=== PATIENT | female | born 1950 | race Caucasian/White ===

== ENCOUNTER 2016-10-17 11:52 | Outpatient (CLI) | payer MEDICARE, OTHER | END 2016-10-17 11:53 | disposition home or self-care (01) | DX: Z12.31 Encounter for screening mammogram for malignant neoplasm of breast (principal) ==

== ENCOUNTER 2017-05-07 15:44 | Outpatient (CLI) | payer MEDICARE, OTHER ==
[2017-05-07 13:38] LABS: BASOPHILS % (AUTO) 0.6 %; EOSINOPHILS # (AUTO) 0.2 10^3/uL (0.0-0.7); EOSINOPHILS % (AUTO) 4.2 %; HCT - HEMATOCRIT 41.5 % (37.0-47.0); HGB - HEMOGLOBIN 14.1 g/dL (12.0-16.0); LYMPHOCYTES % (AUTO) 17.2 %; MEAN CORPUSCULAR HEMOGLOBIN 30.3 pg (27.0-31.0); MEAN CORPUSCULAR HGB CONC 34.1 g/dL (32.0-36.0); MEAN CORPUSCULAR VOLUME 88.8 fL (81.0-99.0); MEAN PLATELET VOLUME 9.3 fL (7.9-10.8); MONOCYTES # (AUTO) 0.6 10^3/uL (0.0-1.0); MONOCYTES % (AUTO) 10.9 %; NEUTROPHILS # (AUTO) 3.9 10^3/uL (1.5-6.6); NEUTROPHILS % (AUTO) 67.1 %; NUCLEATED RED BLOOD CELLS AUTO 0.1 /100WBC; RED BLOOD COUNT 4.67 10^6/uL (4.20-5.40); RED CELL DISTRIBUTION WIDTH 13.9 % (12.0-15.0); UNCORRECTED WHITE BLOOD COUNT 5.8 x10^3/uL; WHITE BLOOD COUNT 5.8 x10^3/uL (4.8-10.8)
[2017-05-07 14:09] LABS: ALBUMIN/GLOBULIN RATIO 1.3 (1.0-2.2); BILIRUBIN,TOTAL 0.7 mg/dL (0.2-1.0); CALCIUM 8.7 mg/dL (8.5-10.3); CREATININE 0.7 mg/dL (0.4-1.0); POTASSIUM 4.2 mmol/L (3.5-5.0); TOTAL PROTEIN 7.1 g/dL (6.7-8.2)
== END 2017-05-07 15:45 | disposition home or self-care (01) ==
LOC: LAB.WCP 15:44
PROVIDERS: ATTEND Family Medicine
DX: I10 Essential (primary) hypertension (principal)
CPT/HCPCS: 36415; 80053; 85025

== ENCOUNTER 2017-05-23 10:06 | Outpatient (CLI) | payer MEDICARE, OTHER ==
[2017-05-23 13:50] LABS: ALBUMIN/GLOBULIN RATIO 1.4 (1.0-2.2); BILIRUBIN,TOTAL 0.9 mg/dL (0.2-1.0); CALCIUM 8.9 mg/dL (8.5-10.3); CREATININE 0.7 mg/dL (0.4-1.0); TOTAL PROTEIN 7.1 g/dL (6.7-8.2)
== END 2017-05-23 10:07 | disposition home or self-care (01) ==
LOC: LAB.WCP 10:06
PROVIDERS: ATTEND Family Medicine
DX: E78.1 Pure hyperglyceridemia (principal)
CPT/HCPCS: 36415; 80053

== ENCOUNTER 2019-02-19 10:07 | Outpatient (CLI) | payer MEDICARE, OTHER ==
--- NOTE | 2019-02-19 16:06 | XRAY Report ---
Reason: HAND PAIN,LEFT Procedure Date: 02/19/2019 Accession Number: [id number] / [id number] Procedure: XRN - Hand 3 View LT CPT Code: FULL RESULT: EXAM: LEFT HAND RADIOGRAPHY EXAM DATE: 02/19/2019 10:31 AM. CLINICAL HISTORY: HAND PAIN, LEFT. COMPARISON: None. TECHNIQUE: 3 views. FINDINGS: Bones: No fractures or bone lesions. Joints: Mild interphalangeal degenerative changes. Mild degenerative changes at the first carpometacarpal joint. No subluxations. Soft Tissues: No soft tissue swelling. IMPRESSION: 1. No acute fracture or subluxation. 2. Mild degenerative changes. RADIA
== END 2019-02-19 10:08 | disposition home or self-care (01) ==
LOC: DI.N 10:07
PROVIDERS: ATTEND Family Medicine
DX: M19.042 Primary osteoarthritis, left hand (principal); M18.12 Unilateral primary osteoarthritis of first carpometacarpal joint, left hand

== ENCOUNTER 2019-03-05 08:00 | Outpatient (CLI) | payer MEDICARE, OTHER ==
[2019-03-05 12:03] LABS: BASOPHILS # (AUTO) 0.1 10^3/uL (0.0-0.1); BASOPHILS % (AUTO) 0.9 %; EOSINOPHILS # (AUTO) 0.2 10^3/uL (0.0-0.7); HGB - HEMOGLOBIN 14.9 g/dL (12.0-16.0); LYMPHOCYTES % (AUTO) 17.5 %; MEAN CORPUSCULAR HEMOGLOBIN 30.3 pg (27.0-31.0); MEAN CORPUSCULAR HGB CONC 34.3 g/dL (32.0-36.0); MEAN CORPUSCULAR VOLUME 88.4 fL (81.0-99.0); MEAN PLATELET VOLUME 11.3 fL (7.9-10.8); MONOCYTES # (AUTO) 0.5 10^3/uL (0.0-1.0); MONOCYTES % (AUTO) 9.4 %; NEUTROPHILS # (AUTO) 3.9 10^3/uL (1.5-6.6); NEUTROPHILS % (AUTO) 67.9 %; PLT - PLATELET COUNT 217 10^3/uL (130-450); RED BLOOD COUNT 4.91 10^6/uL (4.20-5.40); RED CELL DISTRIBUTION WIDTH 13.6 % (12.0-15.0); WHITE BLOOD COUNT 5.7 x10^3/uL (4.8-10.8)
[2019-03-05 12:24] LABS: ALBUMIN 3.9 g/dL (3.2-5.5); ALBUMIN/GLOBULIN RATIO 1.1 (1.0-2.2); ALKALINE PHOSPHATASE 84 IU/L (42-121); ALT ALANINE AMINOTRANSFERASE 17 IU/L (10-60); AST ASPARTATE AMINOTRANSFERASE 19 IU/L (10-42); BILIRUBIN,TOTAL 0.9 mg/dL (0.2-1.0); BUN - BLOOD UREA NITROGEN 14 mg/dL (6-20); CARBON DIOXIDE - CO2 22 mmol/L (21-32); CHLORIDE 102 mmol/L (101-111); CHOL/HDL RATIO 3.1 (<4.4); CHOLESTEROL 181 mg/dL; CREATININE 0.6 mg/dL (0.4-1.0); GFR - MDRD 99 (>89); GLUCOSE 103 mg/dL (70-100); HDL CHOLESTEROL 58 mg/dL; LDL CHOLESTEROL,CALCULATED 102 mg/dL; LDL/HDL RATIO 1.8 (<4.4); SODIUM 136 mmol/L (135-145); TOTAL PROTEIN 7.4 g/dL (6.7-8.2); VLDL CHOLESTEROL 21 mg/dL
[2019-03-05 12:28] LABS: HB2 TOTAL 16.4 g/dL; HEMOGLOBIN A1C 0.62 g/dL; HEMOGLOBIN A1C % 5.6 % (4.6-6.2)
== END 2019-03-05 23:59 | disposition home or self-care (01) ==
LOC: LAB.WCP 08:00
PROVIDERS: ATTEND Family Medicine
DX: R53.83 Other fatigue (principal); I10 Essential (primary) hypertension; D13.5 Benign neoplasm of extrahepatic bile ducts; F32.9 Major depressive disorder, single episode, unspecified; R07.9 Chest pain, unspecified; E66.9 Obesity, unspecified
CPT/HCPCS: 36415; 80053; 80061; 83036; 83721; 84443; 85025

== ENCOUNTER 2019-05-20 08:00 | Outpatient (CLI) | payer MEDICARE, OTHER ==
[2019-05-20 18:42] LABS: CALCIUM 8.7 mg/dL (8.5-10.3); CREATININE 0.7 mg/dL (0.4-1.0); MAGNESIUM 2.2 mg/dL (1.7-2.8)
== END 2019-05-20 23:59 | disposition home or self-care (01) ==
LOC: LAB.WCP 08:00
PROVIDERS: ATTEND Internal Medicine Cardiovascular Disease
DX: I10 Essential (primary) hypertension (principal)
CPT/HCPCS: 36415; 80048; 83735

== ENCOUNTER 2019-07-01 09:00 | Outpatient (CLI) | payer MEDICARE, OTHER ==
[2019-07-01 18:59] LABS: CALCIUM 8.8 mg/dL (8.5-10.3); CREATININE 0.7 mg/dL (0.4-1.0)
== END 2019-07-01 23:59 | disposition home or self-care (01) ==
LOC: LAB.WCP 09:00
PROVIDERS: ATTEND Nurse Practitioner
DX: I10 Essential (primary) hypertension (principal)
CPT/HCPCS: 36415; 80048

== ENCOUNTER 2019-07-09 14:22 | Outpatient (CLI) | payer MEDICARE, OTHER ==
[2019-07-09 19:16] LABS: CALCIUM 8.6 mg/dL (8.5-10.3); CREATININE 0.8 mg/dL (0.4-1.0)
== END 2019-07-09 23:59 | disposition home or self-care (01) ==
LOC: LAB.WCP 14:22
PROVIDERS: ATTEND Nurse Practitioner
DX: I10 Essential (primary) hypertension (principal); R07.9 Chest pain, unspecified; I48.0 Paroxysmal atrial fibrillation
CPT/HCPCS: 36415; 80048; 84443

== ENCOUNTER 2019-07-12 11:03 | Outpatient (CLI) | payer MEDICARE, OTHER ==
[2019-07-12 18:39] LABS: CALCIUM 9.1 mg/dL (8.5-10.3); CREATININE 0.7 mg/dL (0.4-1.0)
== END 2019-07-12 23:59 | disposition home or self-care (01) ==
LOC: LAB.WCP 11:03
PROVIDERS: ATTEND Nurse Practitioner
DX: I10 Essential (primary) hypertension (principal)
CPT/HCPCS: 36415; 80048

== ENCOUNTER → 2019-08-27 | Outpatient (CLI) | payer MEDICARE, OTHER ==
[2019-08-27 19:20] LABS: CALCIUM 8.8 mg/dL (8.5-10.3)
== END ==
LOC: LAB.WCP 08:00
PROVIDERS: ATTEND Family Medicine
DX: I48.0 Paroxysmal atrial fibrillation (principal); I10 Essential (primary) hypertension; R07.89 Other chest pain
CPT/HCPCS: 36415; 80048

== ENCOUNTER 2020-01-17 09:48 | Outpatient (CLI) | payer MEDICARE, OTHER ==
--- NOTE | 2020-01-17 12:19 | DEXA Report ---
Reason: POSTMENOPAUSAL Procedure Date: 01/17/2020 Accession Number: [id number] / [id number] Procedure: DEX - Dexa Spine and/or Hip CPT Code: Final Report FULL RESULT: PROCEDURE: Dexa Spine and/or Hip INDICATIONS: POSTMENOPAUSAL TECHNIQUE: Dual energy x-ray absorptiometry (DXA) was performed on a [employer] System. Regions measured are the AP Spine, femoral neck, and if needed forearm. COMPARISON: None. FINDINGS: Lumbar Spine: Bone Mineral Density 0.993 g/cm/cm,T score -1.6. Total left Hip: Bone Mineral Density 0.719 g/cm/cm,T score -2.3. Left Femoral Neck: Bone Mineral Density 0.721 g/cm/cm, T score -2.3. (T score greater or equal to -1.0: NORMAL) (T score from -1.1 to -2.4: OSTEOPENIA) (T score less than or equal to -2.5 to: OSTEOPOROSIS) Impression: Finding is consistent with osteopenia with increased risk of fracture. Patients with diagnosis of osteoporosis or osteopenia should have regular bone mineral density assessment. For those eligible for Medicare, routine testing is allowed once every 2 years. Testing frequency can be increased for patients who have rapidly progressing disease or for those who are receiving medical therapy to restore bone mass. Reviewed by: Margarito Aguilar MD on 01/17/2020 12:17 PM PDT Approved by: Margarito Aguilar MD on 01/17/2020 12:17 PM PDT Station ID: [id number]
== END 2020-01-17 09:49 | disposition home or self-care (01) ==
LOC: DI 09:48
PROVIDERS: ATTEND Family Medicine
DX: M85.89 Other specified disorders of bone density and structure, multiple sites (principal)
CPT/HCPCS: 77080

== ENCOUNTER 2020-02-10 12:55 | Emergency (ER) | payer MEDICARE, OTHER ==
[2020-02-10 13:32] LABS: BASOPHILS % (AUTO) 0.5 %; EOSINOPHILS # (AUTO) 0.2 10^3/uL (0.0-0.7); EOSINOPHILS % (AUTO) 2.8 %; HGB - HEMOGLOBIN 13.8 g/dL (12.0-16.0); LYMPHOCYTES # (AUTO) 1.2 10^3/uL (1.5-3.5); LYMPHOCYTES % (AUTO) 20.2 %; MEAN CORPUSCULAR HEMOGLOBIN 30.9 pg (27.0-31.0); MEAN CORPUSCULAR HGB CONC 35.4 g/dL (32.0-36.0); MEAN CORPUSCULAR VOLUME 87.2 fL (81.0-99.0); MEAN PLATELET VOLUME 9.9 fL (7.9-10.8); MONOCYTES # (AUTO) 0.7 10^3/uL (0.0-1.0); MONOCYTES % (AUTO) 12.3 %; NEUTROPHILS # (AUTO) 3.7 10^3/uL (1.5-6.6); PLT - PLATELET COUNT 234 10^3/uL (130-450); RED BLOOD COUNT 4.47 10^6/uL (4.20-5.40); RED CELL DISTRIBUTION WIDTH 13.3 % (12.0-15.0); WHITE BLOOD COUNT 5.7 x10^3/uL (4.8-10.8)
--- NOTE | 2020-02-10 13:38 | ED Physician Documentation ---
PD HPI CHEST PAIN - Stated complaint Stated Complaint: CHEST PX - Chief complaint Chief Complaint: Cardiac - History obtained from History obtained from: Patient, Family - History of Present Illness Timing - onset: How many days ago (2) Timing - onset during: Rest Timing - duration: Minutes Timing - details: Abrupt onset, Intermittant Pain level max: 5 Pain level now: 0 Quality: Sharp Location: Substernal Radiation: No: Jaw, Neck, Back Improved by: Nothing Associated symptoms: No: Shortness of air, Diaphoresis, Nausea, Vomiting, Feeling faint / dizzy, General Weakness, Palpitations, Cough - Additional information Additional information: 69-year-old female presents to the emergency department for evaluation of chest pain that occurred nearly 48 hours ago. She reports that she had chest pain about 4 years ago when she developed atrial fibrillation. Since that time she has been placed on metoprolol and Xarelto. Her rhythm in the emergency department right now is a sinus rhythm. It is unclear to me at si time when or how she was converted to a sinus rythm. Patient reports that the chest pain has occurred 3 times since Friday. Each time lasting up to 30 minutes. Is described as sharp and substernal. She denies feeling dyspneic, faint or lightheaded, she had no radiation to the jaw or arm or back. she denies palpitations or a racing heart. She denies that she has any chest pain at this time. Primary care provider is Dr. Eduardo Rodriguez in [place]. Her die maker electronic is Dr. Florez through [facility] cardiology. She is scheduled for an appointment at the end of January pmh: htn, atrial fibrillation meds: xarelto 20 mg qd, HCTZ 12. mg qd, metoprolol 50 mg BID, losartan 75 mg QD Review of Systems Constitutional: denies: Fever, Chills Cardiac: reports: Chest pain / pressure. denies: Palpitations, Pedal edema, C cele pain Respiratory: denies: Dyspnea, Cough, Hemoptysis, Wheezing GI: denies: Abdominal Pain, Abdominal Swelling, Nausea, Vomiting : denies: Dysuria, Frequency Skin: denies: Rash, Lesions Musculoskeletal: denies: Neck pain, Back pain Neurologic: denies: Generalized weakness, Focal weakness, Numbness, Difficulty speaking, Near syncope, Syncope, Confused, Altered mental status, Headache, Head injury PD PAST MEDICAL HISTORY - Past Medical History Cardiovascular: Hypertension, Atrial fibrillation Respiratory: None Neuro: None Endocrine/Autoimmune: None GI: None, GERD - Allergies Allergies/Adverse Reactions: Allergies Allergy/AdvReac Type Severity Reaction Status Date / Time mefenamic acid [From Ponstel] Allergy Rash Verified 02/10/20 13:03 amlodipine AdvReac Respiratory Verified 02/10/20 13:03 lisinopril AdvReac Respiratory Verified 02/10/20 13:03 Sulfa (Sulfonamide AdvReac Nausea Verified 02/10/20 13:03 Antibiotics) PD ED PE NORMAL - General General: Alert and oriented X 3, No acute distress, Well developed/nourished - HEENT HEENT: PERRL, EOMI - Neck Neck: Supple, no meningeal sign, No adenopathy - Cardiac Cardiac: RRR, No murmur, No gallop, No rub, Strong equal pulses - Respiratory Respiratory: No respiratory distress, Clear bilaterally - Abdomen Abdomen: Normal bowel sounds, Soft, Non tender, Non distended - Derm Derm: Normal color, Warm and dry, No rash - Extremities Extremities: No deformity - Neuro Neuro: Alert and oriented X 3, counsellors 2-12 intact, No motor deficit, No sensory deficit, Normal speech Eye Opening: Spontaneous Motor: Obeys Commands Verbal: Oriented GCS Score: 15 Results - Vitals Vitals: Vital Signs - 24 hr 02/10/20 02/10/20 12:57 13:44 Temperature 36.8 C Heart Rate 61 89 Respiratory 18 Rate Blood Pressure 179/83 H 142/58 H O2 Saturation 96 Oxygen O2 Source Room air - EKG (time done) 1301 Rate: Rate (enter#) (60) Rhythm: Abnormal P waves (P wave inversion II, III, AVF, V3, V4; ectopic atrial rythm) [place]: Other Intervals: Normal MD QRS: Normal Ischemia: Normal ST segments Compare to prior EKG: Old EKG unavailable Computer interpretation: Agree with computer - Labs Labs: Laboratory Tests 02/10/20 02/10/20 02/10/20 13:20 13:20 13:20 WBC 5.7 RBC 4.47 Hgb 13.8 Hct 39.0 MCV 87.2 MCH 30.9 MCHC 35.4 RDW 13.3 Plt Count 234 MPV 9.9 Neut # (Auto) 3.7 Lymph # (Auto) 1.2 L [place] # (Auto) 0.7 Eos # (Auto) 0.2 Baso # (Auto) 0.0 Absolute Nucleated RBC 0.00 Nucleated RBC % 0.0 Sodium 127 L Potassium 4.0 Chloride 93 L Carbon Dioxide 24 Anion Gap 10.0 BUN 21 H Creatinine 0.7 Estimated GFR (MDRD) 83 L Glucose 92 Calcium 8.9 Total Bilirubin 1.0 AST 20 ALT 17 Alkaline Phosphatase 72 Troponin I High Sens 4.3 Total Protein 7.1 Albumin 4.0 Globulin 3.1 Albumin/Globulin Ratio 1.3 Lipase 32 - Rads (name of study) CXR Radiology: Final report received (No acute cardiopulmonary process) PD MEDICAL DECISION MAKING - ED course Complexity details: reviewed results, re-evaluated patient, d/w patient, d/w family ED course: 69-year-old female presents to the emergency department for evaluation of chest pain that she noted nearly 48 hours ago. At the time of evaluation in the emergency department she denies any current chest pain and her vital signs are essentially normal - This very pleasant lady reports a history of atrial fib which seems well controlled on Metroprolol and Xarelto. Her EKG is sinus but many the P waves are inverted raising the question of an ectopic atrial focus. However there is certainly no ST segment elevations and her troponin is negative. She has very close follow-up scheduled with her primary care doctor and her die maker electronic for the end of January. I have advised that she call sooner to discuss this ED visit - Her labs are noted to be most significant finding of hyponatremia. Patient reports that she has been told she has hyponatremia in the past and they have adjusted her dose of hydrochlorothiazide for this. I have advised her to have her sodium levels rechecked within 1 week. I also discussed precautions return for headaches, confusion, chest pain dyspnea or extremity swelling Departure - Departure Disposition: 01 Home, Self Care Clinical Impression: Hyponatremia Chest pain Qualifiers: Chest pain type: unspecified Qualified Code(s): R07.9 - Chest pain, unspecified Condition: Stable Instructions: ED Chest Pain Atypical Unkn Cause Comments: Christiano, I hope you are feeling better soon. Please call your die maker electronic to discuss this ED visit. Your troponin is negative today and your EKG does not look like you are having a heart attack. We do not that yoru sodium is 127 mmol/L. This should be rechecked in one week with your primary care doctor or die maker electronic. They may choose to lower or dis continue the HCTZ even further. If you develop headaches, can not speak normally, feel faint or light headed or your chest pain returns, then please return to the emergency department for further evaluation
[2020-02-10 13:47] LABS: ALBUMIN/GLOBULIN RATIO 1.3 (1.0-2.2); CALCIUM 8.9 mg/dL (8.5-10.3); CREATININE 0.7 mg/dL (0.4-1.0); TOTAL PROTEIN 7.1 g/dL (6.7-8.2)
--- NOTE | 2020-02-10 14:00 | XRAY Report ---
PROCEDURE: Chest 1 View X-Ray INDICATIONS: Chest pain TECHNIQUE: One view of the chest was acquired. COMPARISON: 09/10/2016 FINDINGS: Surgical changes and devices: None. Lungs and pleura: No pleural effusions or pneumothorax. Lungs are clear. Mediastinum: Mediastinal contours appear normal. Heart size is normal. Bones and chest wall: No suspicious bony lesions. Overlying soft tissues appear unremarkable. IMPRESSION: No acute cardiopulmonary pathology. Reviewed by: Margarito Aguilar MD on 02/10/2020 1:58 PM PDT Approved by: Margarito Aguilar MD on 02/10/2020 1:58 PM PDT Station ID: [id number]
[2020-02-10 14:16] VITALS: BP 140/77
== END 2020-02-10 14:26 | disposition home or self-care (01) ==
LOC: ED 12:55
DX: R07.89 Other chest pain (principal); E87.1 Hypo-osmolality and hyponatremia; I48.91 Unspecified atrial fibrillation; Z79.01 Long term (current) use of anticoagulants; I10 Essential (primary) hypertension
CPT/HCPCS: 36415; 71045; 80053; 83690; 84484; 85025; 93005; 99284

== ENCOUNTER 2020-04-04 07:46 | Outpatient (CLI) | payer MEDICARE ==
[2020-04-04 12:41] LABS: BASOPHILS % (AUTO) 0.8 %; EOSINOPHILS # (AUTO) 0.2 10^3/uL (0.0-0.7); EOSINOPHILS % (AUTO) 3.5 %; HGB - HEMOGLOBIN 13.7 g/dL (12.0-16.0); LYMPHOCYTES # (AUTO) 1.1 10^3/uL (1.5-3.5); LYMPHOCYTES % (AUTO) 21.6 %; MEAN CORPUSCULAR HEMOGLOBIN 30.1 pg (27.0-31.0); MEAN CORPUSCULAR HGB CONC 33.7 g/dL (32.0-36.0); MEAN CORPUSCULAR VOLUME 89.5 fL (81.0-99.0); MEAN PLATELET VOLUME 10.8 fL (7.9-10.8); MONOCYTES # (AUTO) 0.6 10^3/uL (0.0-1.0); MONOCYTES % (AUTO) 11.8 %; NEUTROPHILS # (AUTO) 3.2 10^3/uL (1.5-6.6); NEUTROPHILS % (AUTO) 62.1 %; PLT - PLATELET COUNT 211 10^3/uL (130-450); RED BLOOD COUNT 4.55 10^6/uL (4.20-5.40); RED CELL DISTRIBUTION WIDTH 13.4 % (12.0-15.0); WHITE BLOOD COUNT 5.1 x10^3/uL (4.8-10.8)
[2020-04-04 13:48] LABS: ALBUMIN 3.9 g/dL (3.2-5.5); ALBUMIN/GLOBULIN RATIO 1.3 (1.0-2.2); ALKALINE PHOSPHATASE 54 IU/L (42-121); ALT ALANINE AMINOTRANSFERASE 19 IU/L (10-60); AST ASPARTATE AMINOTRANSFERASE 18 IU/L (10-42); BILIRUBIN,TOTAL 0.7 mg/dL (0.2-1.0); BUN - BLOOD UREA NITROGEN 14 mg/dL (6-20); CALCIUM 8.8 mg/dL (8.5-10.3); CARBON DIOXIDE - CO2 27 mmol/L (21-32); CHLORIDE 99 mmol/L (101-111); CHOL/HDL RATIO 2.7 (<4.4); CHOLESTEROL 177 mg/dL; GLUCOSE 97 mg/dL (70-100); HDL CHOLESTEROL 66 mg/dL; LDL CHOLESTEROL,CALCULATED 97 mg/dL; LDL/HDL RATIO 1.5 (<4.4); SODIUM 131 mmol/L (135-145); TOTAL PROTEIN 6.9 g/dL (6.7-8.2); VLDL CHOLESTEROL 14 mg/dL
[2020-04-04 14:28] LABS: CREATININE 0.6 mg/dL (0.4-1.0)
== END 2020-04-04 23:59 | disposition home or self-care (01) ==
LOC: LAB.WCP 07:46
PROVIDERS: ATTEND Family Medicine
DX: I10 Essential (primary) hypertension (principal)
CPT/HCPCS: 36415; 80053; 80061; 83721; 85025

== ENCOUNTER 2020-08-07 13:12 | Outpatient (CLI) | payer MEDICARE ==
--- NOTE | 2020-08-07 21:28 | SLEEP CARE CONSULTATION ---
Information from patient questionnaire entered by Carmen Avila. I have reviewed and concur with the information entered by Carmen Avila. This document represents the service I personally performed and the decisions made by me, José Miguel Mc MD, [facility]. History of Present Illness Service Date and Time: 08/07/2020 1312 Reason for Visit: New patient Chief Complaint: reports: Insomnia, Other (cardiology recommended) Date of Onset: for ever Usual bedtime: 10 pm Time it takes to fall asleep: quickly to hours Snores at night: Yes (sometimes) Observed to quit breathing while asleep: No Sleeps alone due to snoring: No Number of times waking at night: 2-4 Reasons for waking at night: reports: Bathroom, Other (unknown) Toss, Turn, or Twitch while sleeping: No (unknown) Recalls having dreams: Yes Usually gets out of bed at: 4-6 am Feels refreshed in the morning: Yes (sometimes) Morning headache: No Sleepy or fatigued during the day: Yes (sometimes) Ever fallen asleep while driving: No Takes day naps: No (sometimes) Dreams during day naps: No Prior sleep studies: No Additional HPI information: I had the pleasure of seeing Ms. Mendoza today regarding the possibility of her h aving a sleep disorder. As you know, she is a 70 year old lady who has paroxysmal atrial fibrillation and recommended by her pre k lead teacher to have a sleep study. The patient tells me that she normally goes to bed around 10 pm, and it takes her from a few minutes to hours fall asleep. She has been told that she snores occasionally at night. She has never been observed to stop breathing in her sleep. Her spouse can still sleep in the same bed. She can recall waking up on the average of 2 - 4 times during the night. Most of the time she wakes up because of having to use the bathroom. She has never awakened because of her own snoring, choking, or having to gasp for air. There is not a lot of tossing and turning in her sleep. No somniloquy (sleep talking) or somnambulism (sleep walking). Generally she can recall having dreams. In the morning she usually gets up out of the bed around 4 - 6 a.m. feeling refreshed and rested. She usually does not have a morning headache. During the day she complains of feeling occasionally sleepy and fatigued. Her score on [place] Sleepiness Scale is 7 out of 24. She has never fallen asleep while driving nor has had any accident due to sleepiness. She usually does not take naps during the day. Upon falling asleep during the day she denies having vivid dreams. She has never had sleep paralysis. She reports having impaired concentration during the day. - Parasomnia Symptoms Ever been unable to move upon waking from sleep: Yes Ever felt weak in the knees when startled or emotional: No Bothered by creepy, crawly, restless sensations in legs: No Problems with memory or concentration: Yes Subjective Initial [place] Sleepiness Scale score: 8 (in 2019) Past Medical History Past Medical History: reports: Hypertension, Other (A-Fib, IBS) Social History The patient's occupation is a Retired. Patient is and lives in [place]. Have you smoked in the past 12 months: No Alcohol use: Yes Alcohol amount and frequency: occasionally Caffeine use: No Caffeine amount and frequency: decaf tea Allergies and Home Medications Drug allergies reviewed: Yes (Ponstel, sulfa) Home medication list reviewed: Yes (: Xarelto, metoprolol, losartan, hydrochlorothiazide ) Review of Systems Cardiovascular: reports: high blood pressure, chest pain Respiratory: denies: shortness of breath, wheeze, sputum production, chronic cough, other Gastrointestinal: reports: heartburn, abdominal pain Urinary: denies: incontinence, frequency, urgency, impotence, other Neurological: denies: headaches, seizure, head trauma, disorientation, speech dysfunction, gait or balance problems, fainting or unconsciousness, other Psychiatric: denies: Attention Deficit Hyperactivity, anxiety, depression, mood disorder, claustrophobia, other Ear/Nose/Throat: denies: nasal congestion, sinus problems, nose bleeds, dry mouth/throat, hoarseness, injury to nose, tonsillectomy, wisdom teeth removed, other Endocrine: denies: thyroid disease, history of goiter, sluggishness, too hot or cold, excessive thirst, increased appetite, increased urination, unexplained weakness, other Musculoskeletal: reports: joint pain Immunologic: denies: sneezing, rash, itching, allergies to food or environment, other Physical Exam Height: 4 ft 11 in Weight: 200 lb Body Mass Index: 40.4 BMI Classification: Morbidly Obese Impression and Plan IMPRESSION: 1. Possible Obstructive Sleep Apnea-Hypopnea Syndrome, as suggested by history of snoring, frequent awakenings during the night, cognitive impairment, and occasional daytime hypersomnolence. Narrow oropharynx and obesity are common predisposing factors for obstructive sleep apnea-hypopnea syndrome. Obstructive sleep apnea, left untreated, can increase the risk of recurrent paroxysmal atrial fibrillation. Pathophysiology of sleep-disordered breathing was discussed. I recommend proceeding to polysomnography to confirm the diagnosis and to assess severity. If she has significant sleep disordered breathing, a manual CPAP titration study will also be performed to find the optimal treatment pressure. I informed the patient of what the sleep studies involve and after some discussion, she agreed to proceed. Plan: 1. Schedule an in-laboratory polysomnography + manual CPAP titration study. 2. Avoid alcohol, sedative and muscle relaxant around bedtime. 4. Attempt to lose weight. 5. Return in 1 to 2 weeks after the study to discuss results and initiate therapy. Visit Type: In Office Time Spent with Patient (minutes): 15 Provider Statement: I spent 100% of the Face to Face Visit with the patient with greater than 50% spent counseling the patient and coordination of care.
== END 2020-08-07 13:13 | disposition home or self-care (01) ==
LOC: SC 13:12
PROVIDERS: ATTEND Internal Medicine Pulmonary Disease
DX: G47.10 Hypersomnia, unspecified (principal); R41.89 Other symptoms and signs involving cognitive functions and awareness; G47.8 Other sleep disorders; R06.83 Snoring; E66.01 Morbid (severe) obesity due to excess calories; Z68.41 Body mass index [BMI] 40.0-44.9, adult
CPT/HCPCS: 99202; G0463; 99212

== ENCOUNTER 2020-09-13 11:22 | Outpatient (CLI) | payer MEDICARE ==
--- NOTE | 2020-09-14 06:25 | Mammography Report ---
BILATERAL DIGITAL SCREENING MAMMOGRAM 3D/2D: 09/13/2020 CLINICAL: Routine screening. Comparison is made to exams dated: 10/17/2016 mammogram, 06/03/2014 mammogram, and 08/29/2014 mammogram - [facility]. The tissue of both breasts is heterogeneously dense. This may lower the sensitivity of mammography. There are benign post operative findings in the left breast. No significant masses, calcifications, or other findings are seen in either breast. There has been no significant interval change. IMPRESSION: BENIGN There is no mammographic evidence of malignancy. A 1 year screening mammogram is recommended. This exam was interpreted at Station ID: [id number]. NOTE: For mammograms, a report in lay terms will be sent to the patient. Approximately 15% of breast malignancies will not be visualized mammographically. In the management of a palpable breast mass, a negative mammogram must not discourage biopsy of a clinically suspicious lesion. Electronically Signed By: Luis allred/jerry:09/13/2020 13:45:42 ACR BI-RADS Category 2: Benign Finding(s) 3342F PARENCHYMAL PATTERN: (D) - The breast(s) demonstrate(s) heterogeneously dense fibroglandular parblanca coyle. BI-RADS CATEGORY: (2) - 2 RECOMMENDATION: (ANNUAL) - Recommend routine annual screening mammography. [id number] 1 year screening LATERALITY: (B)
== END 2020-09-13 11:23 | disposition home or self-care (01) ==
LOC: DI.N 11:22
DX: Z12.31 Encounter for screening mammogram for malignant neoplasm of breast (principal)

== ENCOUNTER 2020-10-03 19:35 | Outpatient (CLI) | payer MEDICARE | END 2020-10-03 19:36 | disposition home or self-care (01) | LOC: SC 19:35 | PROVIDERS: ATTEND Internal Medicine Pulmonary Disease | DX: I48.0 Paroxysmal atrial fibrillation (principal); E66.9 Obesity, unspecified; Z68.41 Body mass index [BMI] 40.0-44.9, adult | CPT/HCPCS: 95810 ==

== ENCOUNTER 2020-10-09 14:13 | Outpatient (CLI) | payer MEDICARE ==
--- NOTE | 2020-10-09 16:12 | SLEEP CARE CONSULTATION ---
Information from patient questionnaire entered by Brennon Alejandra. I have reviewed and concur with the information entered by Brennon Alejandra. This document represents the service I personally performed and the decisions made by me, José Miguel Mc MD, [facility]. History of Present Illness Service Date and Time: 10/09/2020 1413 Initial [place] Sleepiness Scale score: 8 (in 2019) Current [place] Sleepiness Scale score: 8 Additional HPI information: HPI: Ms. Mendoza returned for follow up of the sleep study she had on 10/03/2020. 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 The sleep architecture was abnormal for reduced amount of time spent in REM sleep. Respiratory monitoring showed no significant sleep disordered breathing (AHI = 3.6) or hypoxia (da oxygen saturation of 89%). The few respiratory events occurred almost exclusively during supine sleep (supine AHI = 8.7; non-supine = 0.91). Snore was loud in intensity. There was no significant periodic leg movement of sleep. Cardiac rhythm started off as sinus rhythm, then frequent premature atrial contractions developed, and finally the patient went into atrial fibrillation. No abnormal behavior (parasomnia) observed during the night. The patient was informed of these findings. I explained to her that the sleep study was normal except for the paroxysmal atrial fibrillation. The patient is aware of the arrhythmia. She said she wore a heart monitor for a month and it showed 10 minutes of atrial fibrillation. She is on a blood thinner and beta- isma. Sleep Study - Results Type of Sleep Study: Polysomnography Prior sleep studies: No Allergies and Home Medications Drug allergies reviewed: Yes Home medication list reviewed: Yes Review of Systems Review of systems same as previous: Yes Physical Exam Height: 4 ft 11 in Weight: 200 lb Body Mass Index: 40.4 BMI Classification: Morbidly Obese Nasal exam: positive: excoriation Impression and Plan IMPRESSION: 1. Atrial fibrillation, paroxysmal. Two rhythm strips given to her to take home. The patient will follow up with her primary care provider and electron tube assembler. PLAN: 1. Follow up with primary care provider and electron tube assembler. 2. Avoid sleeping supine. 3. Avoid weight gain. 4. Return for a follow up on as needed basis. Visit Type: In Office Time Spent with Patient (minutes): 15 Provider Statement: I spent 100% of the Face to Face Visit with the patient with greater than 50% spent counseling the patient and coordination of care.
== END 2020-10-09 14:14 | disposition home or self-care (01) ==
LOC: SC 14:13
PROVIDERS: ATTEND Internal Medicine Pulmonary Disease
DX: I48.0 Paroxysmal atrial fibrillation (principal); E66.01 Morbid (severe) obesity due to excess calories; Z68.41 Body mass index [BMI] 40.0-44.9, adult
CPT/HCPCS: 99212; G0463

== ENCOUNTER 2021-01-16 08:53 | Day surgery (SDC) | payer MEDICARE ==
[2021-01-16] MEDS ORDERED: LACTATED RINGERS 1,000 ML IV ONE ×2 (09:01→11:58)
[2021-01-16] MEDS ORDERED: fentaNYL 250 MCG/5 ML VIAL ONE (11:10)
[2021-01-16] MEDS ORDERED: MIDAZOLAM 2 MG/2 ML VIAL ONE ×2 (11:10→11:20)
[2021-01-16 11:59] VITALS: BP 126/53
== END 2021-01-16 08:54 | disposition home or self-care (01) ==
LOC: SDS 08:53
PROVIDERS: ATTEND Surgery
PROC: 0DBK8ZZ Excision of Ascending Colon, Via Natural or Artificial Opening Endoscopic (ICD-10-PCS; principal; 2021-01-16 10:15)
DX: Z12.11 Encounter for screening for malignant neoplasm of colon (principal); D12.2 Benign neoplasm of ascending colon; K57.30 Diverticulosis of large intestine without perforation or abscess without bleeding; K64.8 Other hemorrhoids; K64.4 Residual hemorrhoidal skin tags; I48.91 Unspecified atrial fibrillation; Z80.0 Family history of malignant neoplasm of digestive organs; Z79.01 Long term (current) use of anticoagulants; I10 Essential (primary) hypertension
CPT/HCPCS: 45380; J3010; J7120

== ENCOUNTER 2021-04-06 07:20 | Outpatient (CLI) | payer MEDICARE ==
[2021-04-06 11:57] LABS: BASOPHILS % (AUTO) 0.8 %; EOSINOPHILS # (AUTO) 0.2 10^3/uL (0.0-0.7); EOSINOPHILS % (AUTO) 2.9 %; HCT - HEMATOCRIT 38.9 % (37.0-47.0); HGB - HEMOGLOBIN 12.9 g/dL (12.0-16.0); LYMPHOCYTES # (AUTO) 0.9 10^3/uL (1.5-3.5); LYMPHOCYTES % (AUTO) 17.5 %; MEAN CORPUSCULAR HEMOGLOBIN 29.8 pg (27.0-31.0); MEAN CORPUSCULAR HGB CONC 33.2 g/dL (32.0-36.0); MEAN CORPUSCULAR VOLUME 89.8 fL (81.0-99.0); MEAN PLATELET VOLUME 10.9 fL (7.9-10.8); MONOCYTES # (AUTO) 0.6 10^3/uL (0.0-1.0); MONOCYTES % (AUTO) 11.2 %; NEUTROPHILS # (AUTO) 3.4 10^3/uL (1.5-6.6); NEUTROPHILS % (AUTO) 67.4 %; PLT - PLATELET COUNT 221 10^3/uL (130-450); RED BLOOD COUNT 4.33 10^6/uL (4.20-5.40); RED CELL DISTRIBUTION WIDTH 13.3 % (12.0-15.0); WHITE BLOOD COUNT 5.1 x10^3/uL (4.8-10.8)
[2021-04-06 14:03] LABS: ALBUMIN 3.9 g/dL (3.2-5.5); ALBUMIN/GLOBULIN RATIO 1.3 (1.0-2.2); ALKALINE PHOSPHATASE 77 IU/L (42-121); ALT ALANINE AMINOTRANSFERASE 26 IU/L (10-60); AST ASPARTATE AMINOTRANSFERASE 24 IU/L (10-42); BUN - BLOOD UREA NITROGEN 14 mg/dL (6-20); CALCIUM 8.8 mg/dL (8.5-10.3); CARBON DIOXIDE - CO2 24 mmol/L (21-32); CHLORIDE 97 mmol/L (101-111); CHOLESTEROL 178 mg/dL; CREATININE 0.7 mg/dL (0.4-1.0); GFR - MDRD 82 (>89); GLUCOSE 93 mg/dL (70-100); HDL CHOLESTEROL 60 mg/dL; LDL CHOLESTEROL,CALCULATED 105 mg/dL; LDL/HDL RATIO 1.8 (<4.4); POTASSIUM 4.1 mmol/L (3.5-5.0); SODIUM 132 mmol/L (135-145); TOTAL PROTEIN 6.8 g/dL (6.7-8.2); TRIGLYCERIDES 65 mg/dL; VLDL CHOLESTEROL 13 mg/dL
== END 2021-04-06 23:59 | disposition home or self-care (01) ==
LOC: LAB.WCP 07:20
PROVIDERS: ATTEND Family Medicine
DX: E87.1 Hypo-osmolality and hyponatremia (principal); I10 Essential (primary) hypertension
CPT/HCPCS: 36415; 80053; 80061; 83721; 83930; 83935; 84300; 85025

== ENCOUNTER 2021-09-19 10:47 | Outpatient (CLI) | payer MEDICARE ==
[2021-09-19 19:57] LABS: ALBUMIN/GLOBULIN RATIO 1.3 (1.0-2.2); ALKALINE PHOSPHATASE 73 IU/L (42-121); ALT ALANINE AMINOTRANSFERASE 19 IU/L (10-60); AST ASPARTATE AMINOTRANSFERASE 25 IU/L (10-42); BILIRUBIN,TOTAL 0.8 mg/dL (0.2-1.0); BUN - BLOOD UREA NITROGEN 11 mg/dL (6-20); CARBON DIOXIDE - CO2 26 mmol/L (21-32); CHLORIDE 90 mmol/L (101-111); CHOL/HDL RATIO 2.7 (<4.4); CHOLESTEROL 186 mg/dL; CREATININE 0.6 mg/dL (0.4-1.0); GFR - MDRD 98 (>89); GLUCOSE 94 mg/dL (70-100); HDL CHOLESTEROL 69 mg/dL; LDL CHOLESTEROL,CALCULATED 98 mg/dL; LDL/HDL RATIO 1.4 (<4.4); POTASSIUM 4.5 mmol/L (3.5-5.0); SODIUM 125 mmol/L (135-145); TOTAL PROTEIN 7.1 g/dL (6.7-8.2); TRIGLYCERIDES 96 mg/dL; VLDL CHOLESTEROL 19 mg/dL
== END 2021-09-19 10:48 | disposition home or self-care (01) ==
LOC: LAB.N 10:47
PROVIDERS: ATTEND Nurse Practitioner
DX: I48.0 Paroxysmal atrial fibrillation (principal); I10 Essential (primary) hypertension; E78.00 Pure hypercholesterolemia, unspecified; R00.2 Palpitations
CPT/HCPCS: 36415; 80053; 80061; 83721

== ENCOUNTER 2021-11-05 03:51 | Emergency (ER) | payer MEDICARE ==
--- NOTE | 2021-11-05 05:23 | ED Physician Documentation ---
History of Present Illness - Stated complaint Stated Complaint: HIGH BP - Chief complaint Chief Complaint: Cardiac - History obtained from History obtained from: Patient - History of Present Illness Timing: Yesterday Pain level now: 1 (maybe [id number] (PERES, chest discomfort)) - Additonal information Additional information: longstanding hypertension for which she takes multiple anti-hypertensives. she typically has been taking her blood pressure once per day and writing down the result, and she has had recent good control of her blood pressure with her current regimen. Yesterday she noted elevated BP and thus took several more readings during the day, as well as today, with readings consistently 170s-180s SBP. She is arguably asymptomatic; she says she has maybe [id number] (out of 10) headache and chest discomfort, although she says she is highly suggestible (per patient) and she isnt sure if she just thought about too much about it after being asked by ED RN during triage process. Patient had contacted [facility] regarding her elevated blood pressure readings and was advised to come to ED for evaluation. Does not have h/o CAD. she is on a DOAC for paroxysmal atrial fibrillation. Review of Systems Cardiac: reports: Chest pain / pressure (see HPI (pain level is between 0 and 1 on 0-10 scale)). 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 - Present Medications Home Medications: Ambulatory Orders Medication Instructions Recorded Confirmed Ascorbic Acid [Vitamin C] 1,000 mg PO DAILY 01/15/21 11/05/21 Ergocalciferol (Vitamin D2) 100 mcg PO DAILY 01/15/21 11/05/21 [Vitamin D2] Multivitamin 1 each PO DAILY 01/15/21 11/05/21 Losartan [Cozaar] 50 mg PO BID 11/05/21 11/05/21 Metoprolol Succinate [Toprol Xl] 25 mg PO BID 11/05/21 11/05/21 Nitroglycerin [Nitrostat] 1 tab PO DAILY PRN 11/05/21 11/05/21 Rivaroxaban [Xarelto] 20 mg PO DAILY 11/05/21 11/05/21 cloNIDine [Catapres] 0.2 mg PO BID #10 tablet 11/05/21 hydroCHLOROthiazide [Hydrodiuril] 12.5 mg PO DAILY 11/05/21 11/05/21 - Allergies Allergies/Adverse Reactions: Allergies Allergy/AdvReac Type Severity Reaction Status Date / Time mefenamic acid [From Ponstel] Allergy Rash Verified 11/05/21 04:01 amlodipine AdvReac Respiratory Verified 11/05/21 04:01 lisinopril AdvReac Respiratory Verified 11/05/21 04:01 Sulfa (Sulfonamide AdvReac Nausea Verified 11/05/21 04:01 Antibiotics) - Social History Does the pt smoke?: No Smoking Status: Never smoker PD ED PE NORMAL - Vitals Vital signs reviewed: Yes - General General: Alert and oriented X 3, No acute distress, Well developed/nourished - Cardiac Cardiac: RRR, No murmur - Respiratory Respiratory: No respiratory distress, Clear bilaterally - Neuro Neuro: Alert and oriented X 3 Results - Vitals Vitals: Oxygen O2 Source Room air - EKG (time done) No standard instances Rate: Rate (enter#) (51) Rhythm: Sinus bradycardia [place]: Normal Intervals: Normal MO QRS: Normal Ischemia: Normal ST segments PD MEDICAL DECISION MAKING - ED course Complexity details: reviewed results, re-evaluated patient, considered differential, d/w patient ED course: presents with high blood pressure readings she has been measuring at home over past 1-2 days after long-standing good blood pressure control with her current medications. A screening EKG is performed due to possible chest discomfort (see HPI), and this does not have any acute/concerning findings. Options for augmenting her current anti-hypertensive medication regimen are limited considering her listed allergies (which includes lisinopril and amlodipine), and considering her pulse is in the mid/low 50s on color television console monitor during ED stay. I discussed with patient option of not changing her medications at this time and following up with her PMD or game advisor (whomever can evaluate her sooner); as we were discussing this her blood pressure autocuff remeasured her BP and it was 171/79 (up from previous reading of 150s/70s). Shared decision was made to add clonidine 0.2mg PO BID to her current regimen, but given how well her BP had been controlled, plan includes only prescribing a short course of this medication and hopefully her PMD or game advisor can reevaluate her within the coming week. Return precautions discussed. Departure - Departure Disposition: 01 Home, Self Care Clinical Impression: Hypertension Qualifiers: Hypertension type: primary hypertension Qualified Code(s): I10 - Essential (primary) hypertension Condition: Good Instructions: ED Hypertension Conf Out Of Control Follow-Up: Eliane Rodriguez DO [Primary Care Provider] - Prescriptions: cloNIDine [Catapres] 0.2 mg PO BID #10 tablet Comments: A prescription for clonidine (anti-hypertensive) has been electronically submitted to [facility] in [place]. I have prescribed a short course of this medication (one week). Contact your game advisor and your primary care provider to arrange for follow up to discuss whether they recommend continuing this medication , changing your other blood pressure medication, or reverting to your current regimen (without clonidine) Discharge Date/Time: 11/05/21 06:37
[2021-11-05] MEDS ORDERED: cloNIDine 0.1 MG TABLET PO STA (06:07)
[2021-11-05 06:36] VITALS: BP 170/68
== END 2021-11-05 06:37 | disposition home or self-care (01) ==
LOC: ED 03:51
DX: I10 Essential (primary) hypertension (principal); I48.91 Unspecified atrial fibrillation; Z79.01 Long term (current) use of anticoagulants
CPT/HCPCS: 93005; 99283; 99284; A9270

== ENCOUNTER 2021-11-05 16:13 | Outpatient (CLI) | payer MEDICARE | END 2021-11-05 23:59 | disposition home or self-care (01) | LOC: LAB.N 16:13 | PROVIDERS: ATTEND Nurse Practitioner | DX: R05.9 Cough, unspecified (principal); Z20.822 Contact with and (suspected) exposure to COVID-19 ==

== ENCOUNTER 2022-01-03 09:05 | Outpatient (CLI) | payer MEDICARE ==
--- NOTE | 2022-01-03 09:44 | DEXA Report ---
PROCEDURE: Dexa Spine and/or Hip INDICATIONS: POST MENOPAUSAL TECHNIQUE: Dual energy x-ray absorptiometry (DXA) was performed on a [employer] System. Regions measur ed are the AP Spine, femoral neck, and if needed forearm. COMPARISON: None. FINDINGS: Lumbar Spine: Bone Mineral Density 0.913 g/cm/cm,T score -2.2, osteopenia Left total Hip: Bone Mineral Density 0.695 g/cm/cm,T score -2.5, osteoporosis Left Femoral Neck: Bone Mineral Density 0.712 g/cm/cm, T score -2.3, osteopenia (T score greater or equal to -1.0: NORMAL) (T score from -1.1 to -2.4: OSTEOPENIA) (T score less than or equal to -2.5 to: OSTEOPOROSIS) Impression: Osteoporosis Patients with diagnosis of osteoporosis or osteopenia should have regular bone mineral density assess ment. For those eligible for Medicare, routine testing is allowed once every 2 years. Testing frequ ency can be increased for patients who have rapidly progressing disease or for those who are receivin g medical therapy to restore bone mass. Reviewed by: Emmanuel Ramos on 01/03/2022 9:42 AM PDT Approved by: Emmanuel Ramos on 01/03/2022 9:42 AM PDT Station ID: [id number]
== END 2022-01-03 09:06 | disposition home or self-care (01) ==
LOC: DI 09:05
PROVIDERS: ATTEND Nurse Practitioner
DX: M81.0 Age-related osteoporosis without current pathological fracture (principal); Z78.0 Asymptomatic menopausal state

== ENCOUNTER 2022-05-24 07:21 | Emergency (ER) | payer MEDICARE ==
--- NOTE | 2022-05-24 07:53 | ED Physician Documentation ---
PD HPI CHEST PAIN - Stated complaint Stated Complaint: HIGH BLOOD PRESSURE - Chief complaint Chief Complaint: Cardiac - History obtained from History obtained from: Patient - History of Present Illness Timing - onset: How many days ago (6-7) Timing - onset during: Rest (she takes her BP regularly twice daily and BP has been more often at 150-165 systolic this past week, with typical previously of 125-135. No change in meds. No current illness, no recent stresses. Had vague brief chest pain this morning. None now.) Timing - details: Waxing and waning Quality: Tightness Location: Substernal, Left chest Associated symptoms: Other (denies headache nor blurred vision.). No: Shortness of air, Diaphoresis, Nausea Similar symptoms before: Diagnosis (has had htn in the past, currently on BP meds Losartan 100mg daily, Metoprolol 25 mg bid, and HCTZ 12.5 mg with history of low sodium so limited on the diuretic.) Recently seen: Not recently seen (but has had ECHO and stress testing by her carpet sewer in the past couple of years.) Review of Systems Constitutional: denies: Fever, Chills Eyes: denies: Decreased vision Nose: denies: Rhinorrhea / runny nose, Congestion Throat: denies: Sore throat Cardiac: denies: Palpitations, Pedal edema, Calf pain Respiratory: denies: Cough GI: denies: Abdominal Pain, Nausea, Vomiting, Diarrhea, Bloody / black stool Musculoskeletal: denies: Neck pain, Back pain Neurologic: denies: Generalized weakness, Confused, Altered mental status, Headache PD PAST MEDICAL HISTORY - Past Medical History Cardiovascular: Hypertension, Atrial fibrillation Respiratory: None Neuro: None Endocrine/Autoimmune: None GI: GERD : None HEENT: Chronic vision loss, Chronic hearing loss Psych: None Musculoskeletal: Other Derm: None - 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 - Present Medications Home Medications: Ambulatory Orders Medication Instructions Recorded Confirmed Ascorbic Acid [Vitamin C] 1,000 mg PO DAILY 01/15/21 11/05/21 Ergocalciferol (Vitamin D2) 100 mcg PO DAILY 01/15/21 11/05/21 [Vitamin D2] Multivitamin 1 each PO DAILY 01/15/21 11/05/21 Losartan [Cozaar] 50 mg PO BID 11/05/21 11/05/21 Metoprolol Succinate [Toprol Xl] 25 mg PO BID 11/05/21 11/05/21 Nitroglycerin [Nitrostat] 1 tab PO DAILY PRN 11/05/21 11/05/21 Rivaroxaban [Xarelto] 20 mg PO DAILY 11/05/21 11/05/21 cloNIDine [Catapres] 0.2 mg PO BID #10 tablet 11/05/21 hydroCHLOROthiazide [Hydrodiuril] 12.5 mg PO DAILY 11/05/21 11/05/21 - Allergies Allergies/Adverse Reactions: Allergies Allergy/AdvReac Type Severity Reaction Status Date / Time mefenamic acid [From Ponstel] Allergy Rash Verified 05/24/22 07:38 amlodipine AdvReac Respiratory Verified 05/24/22 07:38 lisinopril AdvReac Respiratory Verified 05/24/22 07:38 Sulfa (Sulfonamide AdvReac Nausea Verified 05/24/22 07:38 Antibiotics) - Social History Does the pt smoke?: No Smoking Status: Never smoker PD ED PE NORMAL - Vitals Vital signs reviewed: Yes - General General: Alert and oriented X 3, No acute distress, Well developed/nourished - Neck Neck: Supple, no meningeal sign, No adenopathy, No JVD - Cardiac Cardiac: RRR, No rub, Other (1/6 murmur right chest without apparant radiation. ) - Respiratory Respiratory: Clear bilaterally - Abdomen Abdomen: Soft, Non tender - Back Back: No CVA TTP - Derm Derm: Normal color, Warm and dry - Extremities Extremities: Normal ROM s pain, No edema, No calf tenderness / cord - Neuro Neuro: Alert and oriented X 3, No motor deficit, Normal speech Results - Vitals Vitals: Oxygen O2 Source Room air - EKG (time done) 08:13 Rate: Rate (enter#) (56) Rhythm: NSR [place]: Normal Intervals: Normal ID QRS: Normal Ischemia: Normal ST segments. No: ST elevation c/w ischemia, ST depression - Labs Labs: Laboratory Tests 05/24/22 05/24/22 08:23 08:23 Sodium 129 L Potassium 3.9 Chloride 97 L Carbon Dioxide 25 Anion Gap 7.0 BUN 10 Creatinine 0.6 Estimated GFR (MDRD) 98 Glucose 101 H Calcium 8.7 Magnesium 2.0 Total Bilirubin 0.7 AST 19 ALT 18 Alkaline Phosphatase 67 Troponin I High Sens 4.6 Total Protein 6.4 L Albumin 3.8 Globulin 2.6 Albumin/Globulin Ratio 1.5 Lipase 30 PD MEDICAL DECISION MAKING - ED course Complexity details: reviewed results, re-evaluated patient, considered differential (patient has BP log and is showing some upswing in BPs the past week. HR has been consistently in the 58-70 range, so seems there is some room for increasing metoprolol. Losartan already at high dose. ), d/w patient Departure - Departure Disposition: Home, Self Care Clinical Impression: Elevated blood pressure reading, Hyponatremia Hypertension Qualifiers: Hypertension type: unspecified Qualified Code(s): I10 - Essential (primary) hypertension Condition: Stable Record reviewed to determine appropriate education?: Yes Follow-Up: Laverne Hamm ARNP [Primary Care Provider] - Armando Martin MD [Physician No Access] - Comments: Your sodium is 129 which is comparably low to other blood tests you have had. Its a little better than your last one which was 125. Your other electrolytes and kidney function and blood sugar are normal. Your troponin is normal, which is a marker for heart muscle injury. Therefore no signs of heart failure or heart attack. Your EKG was normal as well. No signs of ischemia or diminished blood flow to the heart. At this point since your blood pressure was trending a little higher this past week or so, it could be reasonable to increase your metoprolol from 25 mg twice daily to a new dosing of 20 5 in the morning and 50 at night. See how your blood pressure does over the next week or so as well as your heart rate as you typically do. If your heart rate gets lower to the lower 50s genera lly, then we may need to go back to the prior dose of metoprolol. See if it improves your blood pressure. Be in touch with your primary care and carpet sewer next week to see if they want to modify medications differently or not. The Heart Association has changed their recommendations in the last several years. They would consider a blood pressure of 150/90 to still be normal for your age range. Your blood pressure cuff therefore will be signaling you as high if it still gauging it off of the prior 140/90 recommendations. We are also most concerned with blood pressure being elevated (over 200/110 shad) if associated with symptoms of chest pain, edema, significant headache, blurred vision/confusion or other concerns. Discharge Date/Time: 05/24/22 09:12
[2022-05-24 08:46] LABS: ALBUMIN 3.8 g/dL (3.2-5.5); ALBUMIN/GLOBULIN RATIO 1.5 (1.0-2.2); BILIRUBIN,TOTAL 0.7 mg/dL (0.2-1.0); CALCIUM 8.7 mg/dL (8.5-10.3); CREATININE 0.6 mg/dL (0.4-1.0); POTASSIUM 3.9 mmol/L (3.5-5.0); TOTAL PROTEIN 6.4 g/dL (6.7-8.2)
[2022-05-24 09:09] VITALS: BP 167/75
== END 2022-05-24 09:12 | disposition home or self-care (01) ==
LOC: ED 07:21
DX: I10 Essential (primary) hypertension (principal); E87.1 Hypo-osmolality and hyponatremia
CPT/HCPCS: 36415; 80053; 83690; 83735; 84484; 93005; 99283

== ENCOUNTER 2023-01-20 10:56 | Outpatient (CLI) | payer MEDICARE ==
--- NOTE | 2023-01-21 08:54 | Mammography Report ---
BILATERAL DIGITAL SCREENING MAMMOGRAM 3D/2D: 01/20/2023 CLINICAL: Routine screening. Comparison is made to exams dated: 09/13/2020 mammogram, 10/17/2016 mammogram, 08/29/2014 mammogram, 06/03/2014 mammogram - [facility], and 01/16/2012 mammogram - [facility]. Both breasts are heterogeneously dense, which may obscure small masses (category c / 51-75% glandular tissue). There are benign post operative findings in the left breast. No significant masses, calcifications, or other findings are seen in either breast. There has been no significant interval change. IMPRESSION: BENIGN There is no mammographic evidence of malignancy. A 1 year screening mammogram is recommended. Based on the Tyrer Cuzick model (a risk assessment model) the patients lifetime risk is 9.3% and her 10 year risk is 7.7%. According to the ACR, ACS, and NCCN guidelines, an annual breast MRI exam kaitlyn g with mammogram is recommended if the patients lifetime risk is 20% or greater. This exam was interpreted at Station ID: [id number]. NOTE: For mammograms, a report in lay terms will be sent to the patient. Approximately 15% of breast malignancies will not be visualized mammographically. In the management of a palpable breast mass, a negative mammogram must not discourage biopsy of a clinically suspicious lesion. Electronically Signed By: Jonathan sebastian/jerry:01/20/2023 11:55:11 letter sent: No_Letter ACR BI-RADS Category 2: Benign Finding(s) 3342F PARENCHYMAL PATTERN: (D) - The breast(s) demonstrate(s) heterogeneously dense fibroglandular yadi coyle. BI-RADS CATEGORY: (2) - 2 Mammogram [id number] 1 year screening LATERALITY: (B)
== END 2023-01-20 10:57 | disposition home or self-care (01) ==
LOC: DI.N 10:56
PROVIDERS: ATTEND Nurse Practitioner
DX: Z12.31 Encounter for screening mammogram for malignant neoplasm of breast (principal)

== ENCOUNTER 2023-05-13 20:27 | Outpatient (CLI) | payer MEDICARE | END 2023-05-13 20:28 | disposition home or self-care (01) | LOC: SC 20:27 | PROVIDERS: ATTEND Internal Medicine Pulmonary Disease | DX: G47.8 Other sleep disorders (principal); G47.61 Periodic limb movement disorder; I48.91 Unspecified atrial fibrillation | CPT/HCPCS: 95810 ==

== ENCOUNTER 2023-05-30 11:23 | Outpatient (CLI) | payer MEDICARE ==
--- NOTE | 2023-05-30 11:58 | Sleep Patient Instructions ---
Sleep Center Visit Summary - Patient Visit Information Reason for Visit: Sleep study follow-up - Patient Instructions Additional Instructions: Your sleep study today was negative for significant sleep disordered breathing. However, you did have elevated respiratory episodes when sleeping on your back. You should avoid sleeping on your back to control these respiratory episodes. You were found to have episodes of snoring. There are different ways to control snoring including weight loss, oral devices made by a dentist or surgical options through ENT specialist. You should not use oral devices that do not fit properly because they can affect your bite. You should also check insurance coverage of oral devices for snoring because they may not be cover well. You may obtain a referral to an ENT specialist through your primary provider. Follow-up as needed. - Clinic Information Contact: [facility] [address] [place] [address] [email or web address] T: [phone]
--- NOTE | 2023-05-30 12:04 | SLEEP CARE CONSULTATION ---
Information from patient questionnaire entered by Mervat Delacruz. I have reviewed and concur with the information entered by Mervat Delacruz. This document represents the service I personally performed and the decisions made by , Vicky Myers ARNP. History of Present Illness Service Date and Time: 05/30/2023 112 Initial [place] Sleepiness Scale score: 8 (in 2019) Current [place] Sleepiness Scale score: 7 (05/30/23) Additional HPI information: PARKER MCKEON returns for follow up and results of the recently performed polysomnography. The patient was informed of the following findings: No significant sleep disordered breathing with an average AHI of 3.9 and da oxygen saturation of 88%. However her supine AHI was elevated at 9.8. She had severe PLMs contributing to sleep fragmentation. I explained the pathophysiology behind obstructive sleep apnea. Patient does not have sleep apnea and was advised how weight gain could increase the risk of developing sleep apnea in the future. I encouraged the patient to lose weight. Patient does not have significant sleep disordered breathing but has elevated AHI in supine position so advised positional therapy. Patient has moderate snoring. Snoring can be reduced by weight loss. Weight loss is best achieved with diet consult. Patient instructed to contact PCP for referral. Snoring can also be treated with an oral appliance from a dentist. Advised to check insurance coverage. In addition, an ENT evaluation can be do to see if other treatment is indicated. Patient counseled not drink alcohol less than 4 hours before bedtime as it can increase snoring and apnea. Patient was cautioned about risks of drowsy driving until sleepiness symptoms resolve. Patient denies drowsy driving. Sleep Study - Results Type of Sleep Study: Polysomnography (COMPLETED 05/13/23) Prior sleep studies: No Polysomnography/Home Sleep Study results: IMPRESSION: The quality of the study is good. The patient had reduced sleep efficiency due to several awakenings during the night. The sleep architecture was abnormal for sleep fragmentation and reduced amount of time spent in REM and slow wave sleep (N3). Respiratory monitoring showed no significant sleep disordered breathing (AHI = 3.9) or hypoxia (da oxygen saturation of 88%). The few respiratory events occurred almost exclusively during supine sleep (supine AHI = 9.8; non-supine = 0.00). Snore was light to moderate in intensity. There was severe periodic leg movement of sleep contributing to the sleep fragmentation. Cardiac rhythm was normal sinus rhythm without significant arrhythmia. No abnormal behavior (parasomnia) observed during the night. Allergies and Home Medications Known drug allergies: Yes (as listed) Drug allergies reviewed: Yes Home medication list reviewed: Yes (no changes) Allergy and home medication list: Allergies mefenamic acid [From Ponstel] Allergy (Verified 05/29/23 12:43) Rash amlodipine Adverse Reaction (Verified 05/29/23 12:43) Respiratory lisinopril Adverse Reaction (Verified 05/29/23 12:43) Respiratory Sulfa (Sulfonamide Antibiotics) Adverse Reaction (Verified 05/29/23 12:43) Nausea Review of Systems Review of systems same as previous: Yes (NO CHANGE) Physical Exam Vital signs obtained and entered by: MERVAT Deal MA Blood Pressure: 120/70 (LEFT ARM) Cuff size: regular Heart Rate: 58 O2 Saturation: 97 Height: 4 ft 11 in Weight: 143 lb 6.4 oz Body Mass Index: 28.9 BMI Classification: Overweight Impression and Plan 1. Snoring but no significant sleep disordered breathing. However, she has an elevated supine AHI and should avoid sleeping supine. Patient advised that often weight loss will reduce snoring as well as apnea risk. An oral appliance can also be used for snoring. This would require a dental consultation. Patient cautioned not to use other online appliances as can cause bite issues. Patient is advised to check if insurance will cover. An ENT consult can also be helpful to determine if any other treatment is an option. 2. Periodic limb movement, severe, that did contribute to sleep fragmentation. Periodic limb movement of sleep (PLMS) is characterized by episodes of repetitive limb movements that occur during sleep and usually involve the lower limbs. The etiology is unknown but can be associated with restless leg syndrome (RLS), neuropathy, spinal cord diseases, kidney disease, rheumatological disorders, narcolepsy, obstructive sleep apnea, and REM sleep behavior disorder. Caffeine can also aggravate PLMS and should be avoided. Sleep hygiene methods can also improve sleep as well as lifestyle changes such as regular exercise. Patient was advised that no treatment is needed at this time. If symptoms increase, then further evaluation is indicated. 3. Overweight, unspecified. Currently patients BMI is 28.9. Obesity increases the risk of apnea, CPAP pressure requirements and overall health risks especially cardiovascular and diabetes. Thus patient is advised to lose weight. * Followup with PCP for severe PLMs * Attempt to lose weight * Avoid alcohol consumption near bedtime * The patient is cautioned about driving until sleepiness is completely resolved. * Return as needed for follow up. Counseling Topics: Sleeping position, Weight loss health impact Follow up with Sleep Care in: as needed Visit Type: In Office Time Spent with Patient (minutes): 23 Provider Statement: I spent 100% of the Face to Face Visit with the patient with greater than 50% spent counseling the patient and coordination of care.
[2023-05-30 12:05] VITALS: BP 120/70; O2SAT 97
== END 2023-05-30 11:24 | disposition home or self-care (01) ==
LOC: SC 11:23
PROVIDERS: ATTEND Nurse Practitioner Family
DX: R06.83 Snoring (principal); G47.61 Periodic limb movement disorder; E66.3 Overweight; Z68.28 Body mass index [BMI] 28.0-28.9, adult
CPT/HCPCS: 99213; G0463; 99212

== ENCOUNTER 2023-11-06 10:52 | Outpatient (CLI) | payer MEDICARE ==
[2023-11-06 17:46] LABS: BASOPHILS # (AUTO) 0.1 10^3/uL (0.0-0.1); BASOPHILS % (AUTO) 1.1 %; EOSINOPHILS # (AUTO) 0.2 10^3/uL (0.0-0.7); EOSINOPHILS % (AUTO) 3.7 %; HCT - HEMATOCRIT 40.2 % (37.0-47.0); HGB - HEMOGLOBIN 13.5 g/dL (12.0-16.0); LYMPHOCYTES # (AUTO) 1.1 10^3/uL (1.5-3.5); LYMPHOCYTES % (AUTO) 20.1 %; MEAN CORPUSCULAR HEMOGLOBIN 30.2 pg (27.0-31.0); MEAN CORPUSCULAR HGB CONC 33.6 g/dL (32.0-36.0); MEAN CORPUSCULAR VOLUME 89.9 fL (81.0-99.0); MEAN PLATELET VOLUME 10.9 fL (7.9-10.8); MONOCYTES # (AUTO) 0.7 10^3/uL (0.0-1.0); MONOCYTES % (AUTO) 12.5 %; NEUTROPHILS # (AUTO) 3.4 10^3/uL (1.5-6.6); NEUTROPHILS % (AUTO) 62.4 %; PLT - PLATELET COUNT 229 10^3/uL (130-450); RED BLOOD COUNT 4.47 10^6/uL (4.20-5.40); RED CELL DISTRIBUTION WIDTH 13.6 % (12.0-15.0); WHITE BLOOD COUNT 5.4 x10^3/uL (4.8-10.8)
[2023-11-06 18:05] LABS: ALBUMIN 3.9 g/dL (3.2-5.5); ALBUMIN/GLOBULIN RATIO 1.3 (1.0-2.2); ALKALINE PHOSPHATASE 89 IU/L (42-121); ALT ALANINE AMINOTRANSFERASE 41 IU/L (10-60); AST ASPARTATE AMINOTRANSFERASE 23 IU/L (10-42); BILIRUBIN,TOTAL 0.6 mg/dL (0.2-1.0); BUN - BLOOD UREA NITROGEN 12 mg/dL (6-20); CALCIUM 9.7 mg/dL (8.5-10.3); CARBON DIOXIDE - CO2 28 mmol/L (21-32); CHLORIDE 96 mmol/L (101-111); CHOL/HDL RATIO 2.8 (<4.4); CHOLESTEROL 167 mg/dL; CREATININE 0.8 mg/dL (0.6-1.3); GFR - MDRD 70 (>89); GLUCOSE 84 mg/dL (74-104); HDL CHOLESTEROL 59 mg/dL; LDL CHOLESTEROL,CALCULATED 77 mg/dL; LDL/HDL RATIO 1.3 (<4.4); POTASSIUM 4.5 mmol/L (3.5-4.5); SODIUM 129 mmol/L (135-145); TRIGLYCERIDES 155 mg/dL (48-352); VLDL CHOLESTEROL 31 mg/dL
[2023-11-06 18:13] LABS: THYROID STIMULATING HORMONE 2.09 uIU/mL (0.34-5.60)
[2023-11-06 21:08] LABS: ESTIMATED AVERAGE GLUCOSE 108 mg/dL (70-100); HEMOGLOBIN A1c% 5.4 % (4.27-6.07)
== END 2023-11-06 10:53 | disposition home or self-care (01) ==
LOC: LAB.N 10:52
PROVIDERS: ATTEND Nurse Practitioner
DX: E87.1 Hypo-osmolality and hyponatremia (principal); H81.10 Benign paroxysmal vertigo, unspecified ear; I10 Essential (primary) hypertension; Z13.220 Encounter for screening for lipoid disorders; R73.01 Impaired fasting glucose; R73.03 Prediabetes; I48.0 Paroxysmal atrial fibrillation; F32.A Depression, unspecified
CPT/HCPCS: 36415; 80053; 80061; 83036; 83721; 84443; 85025

== ENCOUNTER 2024-01-01 07:01 | Outpatient (CLI) | payer MEDICARE ==
--- NOTE | 2024-01-01 12:30 | DEXA Report ---
PROCEDURE: Dexa Spine and/or Hip INDICATIONS: POST MENOPAUSAL TECHNIQUE: Dual energy x-ray absorptiometry (DXA) was performed on a [employer] System. Regions measur ed are the AP Spine, femoral neck, and if needed forearm. COMPARISON: None FINDINGS: Lumbar Spine: Bone Mineral Density: 0.90 g/cm/cm,T score: -2.3. Left Femoral Neck: Bone Mineral Density: 0.664 g/cm/cm, T score: -2.7. Left Hip: Bone Mineral Density: 0.695 g/cm/cm,T score: -2.5. (T score greater or equal to -1.0: NORMAL) (T score from -1.1 to -2.4: OSTEOPENIA) (T score less than or equal to -2.5 to: OSTEOPOROSIS) Impression: By WHO criteria, this patient has osteoporosis in the left femoral neck and left hip with severe oste openia in this lumbar spine. Patients with diagnosis of osteoporosis or osteopenia should have regular bone mineral density assess ment. For those eligible for Medicare, routine testing is allowed once every 2 years. Testing frequ ency can be increased for patients who have rapidly progressing disease or for those who are receivin g medical therapy to restore bone mass. Reviewed by: Jayshree Hightower MD on 01/01/2024 12:29 PM PDT Approved by: Jayshree Hightower MD on 01/01/2024 12:29 PM PDT Station ID: [id number]
== END 2024-01-01 07:02 | disposition home or self-care (01) ==
LOC: DI 07:01
PROVIDERS: ATTEND Nurse Practitioner
DX: M81.0 Age-related osteoporosis without current pathological fracture (principal); Z78.0 Asymptomatic menopausal state